=== PATIENT | male | born 1965 | race Caucasian/White ===

== ENCOUNTER 2016-11-19 17:10 | Emergency (ER) | payer OTHER ==
[~2016-11-19] VITALS: Ht 167.6 cm; Wt 77.4 kg
[2016-11-19 17:15] VITALS: TEMP 36.7; Ht 167.6 cm; Wt 77.4 kg
[2016-11-19] MEDS ORDERED: CLC100X PO (17:50)
[2016-11-19] MEDS ORDERED: MOMLX PO (17:50)
--- NOTE | 2016-11-19 18:36 | DIAGNOSTIC IMAGING REPORT ---
ABDOMEN 2VIEW W/PA CHEST RTN CLINICAL HISTORY: Abd wall hernia COMPARISON STUDY: No previous studies for comparison. FINDINGS: The erect chest reveals no evidence of free air. There is no evidence of focal pulmonary consolidation.] Erect and supine views of the abdomen reveal no abnormally dilated loops of large or small bowel. There are no transition zone to indicate bowel obstruction. There is a surgical clip within the right upper quadrant, likely secondary to a prior cholecystectomy. There is a mild scoliosis. IMPRESSION: No evidence of bowel obstruction. No evidence of free air. Electronically signed by: Darrion Carter M.D. 11/19/2016 6:35 PM Dictated Date/Time: 11/19/2016 6:33 PM
[2016-11-19 19:10] VITALS: BP 107/69; PULSE 56; O2SAT 99
--- NOTE | 2016-11-19 20:16 | EMERGENCY ROOM VISIT NOTE ---
History First contact with patient: 17:28 Chief Complaint: GI ASSESSMENT Stated Complaint: HERNIA, BULGING STOMACH Nursing Triage Summary: Pt denies pain in triage. Pt brought in with CO's who state pt has an umbilical hernia, no pain. Pt does not speak Congolese. History of Present Illness The patient is a 51 year old male who presents to the Emergency Room from [facility] with complaints of an abdominal wall hernia and diarrhea for the past 2 days. History was elicited through the computer based interpretation services. The patient reports that he underwent colon resection in April 2016 for small bowel obstruction. He did have a colostomy bag for 5 months with subsequent reversal. This surgery was performed in [place]. The patient currently denies any abdominal pain, nausea, urinary symptoms or recent constipation. He does report trace blood in his stool this afternoon. He does report a history of hemorrhoids as well. Review of Systems Review of systems was limited secondary to language barrier. A brief 6 system review was performed and was negative except for pertinent positives and negatives as indicated in history of present illness. Past Medical/Surgical History Medical Problems: (1) Small bowel obstruction Surgical Problems: (1) History of colostomy (2) History of colostomy reversal Family History Unremarkable Social History Smoking Status: Current Every Day Smoker Alcohol Use: none Marital Status: single Housing Status: other (incarcerated) Occupation Status: other (incarcerated) Current/Historical Medications Scheduled Docusate Sodium (Docusate Sodium), 100 MG PO BID Magnesium Hydroxide (Milk of Magnesia), 1 DOSE PO BID Allergies Coded Allergies: Penicillins (Unverified Allergy, Unknown, "almost ", 11/19/16) Physical Exam Vital Signs Date Time Temp Pulse Resp B/P Pulse Ox O2 Delivery O2 Flow Rate FiO2 11/19/16 19:10 56 16 107/69 99 Room Air 11/19/16 17:15 36.7 59 16 130/57 100 Room Air Pain Rating (0-10): 1.0 Physical Exam CONSTITUTIONAL: Healthy and well nourished. Patient does not appear in any acute distress. HEENT: Normocephalic, atraumatic. Pupils equal, round and reactive. No scleral icterus or conjunctival pallor area NECK: Full active range of motion without discomfort. OROPHARYNX: No posterior pharyngeal erythema, tonsillar hypertrophy or exudates. RESPIRATORY: Clear to auscultation bilaterally with no wheezing, crackles, rhonchi or stridor. CARDIOVASCULAR: Regular rate and rhythm with no murmurs, rubs or gallops. GASTROINTESTINAL: Patient has multiple surgical scars on the abdomen. He has notable protuberance over the central and lower abdominal wall. No overriding erythema noted. The patient has no tenderness to palpation. Examination of the rectum does not show any external hemorrhoids or bleeding. Stool Hemoccult was negative. MUSCULOSKELETAL: Full range of motion of all joints without discomfort. INTEGUMENTARY: No rash or other significant dermatologic conditions noted. NEUROLOGIC: No focal neurologic deficits noted. Medical Decision & Procedures ER Provider Diagnostic Interpretation: My interpretation of an abdomen obstruction series with PA chest does not show any free air or obstructive pattern. Radiologist report is as follows: ABDOMEN 2VIEW W/PA CHEST RTN CLINICAL HISTORY: Abd wall hernia COMPARISON STUDY: No previous studies for comparison. FINDINGS: The erect chest reveals no evidence of free air. There is no evidence of focal pulmonary consolidation.] Erect and supine views of the abdomen reveal no abnormally dilated loops of large or small bowel. There are no transition zone to indicate bowel obstruction. There is a surgical clip within the right upper quadrant, likely secondary to a prior cholecystectomy. There is a mild scoliosis. IMPRESSION: No evidence of bowel obstruction. No evidence of free air. ED Course Patient history and physical exam were performed. Nurse's notes were reviewed. Vital signs were reviewed and were normal. Computer-based interpretation services was utilized throughout the patient's entire emergency department visit. 3 was collected, showing a prior history of small bowel obstruction, status post bowel resection, colostomy and subsequent reversal. The patient is currently asymptomatic without pain, nausea or vomiting. He did have some diarrhea over the past few days with a trace amount of blood on his last bowel movement. At this point, I do not feel that further laboratory studies are warranted. His abdomen obstruction series was normal. The patient was advised that he would be provided contact information for a general surgeon for further reevaluation. At this point, because he is asymptomatic, I am not sure if surgery will suggest hernia repair. He was instructed to seek further medical evaluation for any developing pain, vomiting or fever. The patient voiced understanding through the interpretation services, all questions were answered to the patient's satisfaction, and the patient denied any pain at the time of discharge. Medical Decision See previous section Impression Primary Impression: Abdominal wall hernia Departure Information Dispostion Home / Self-Care Condition GOOD Referrals Cuate Osman D.O. Forms HOME CARE DOCUMENTATION FORM, IMPORTANT VISIT INFORMATION Patient Instructions My [facility] [employer] Additional Instructions Follow-up with Dr. Osman (general surgeon) to discuss further abdominal wall hernia management. Return to the emergency department for any developing pain, vomiting or fever.
[2016-12-26] MEDS ORDERED: [UNRECOGNIZED DRUG - SUPPLY] PO (12:33)
== END 2016-11-19 19:11 | disposition home or self-care (01) ==
LOC: C.EDB 17:13 → C.EDD 19:11
DX: K46.9 Unspecified abdominal hernia without obstruction or gangrene (principal); F17.200 Nicotine dependence, unspecified, uncomplicated

== ENCOUNTER 2016-11-21 22:24 | Emergency (ER) | payer OTHER ==
[~2016-11-21 22:24] MED LIST: CLC100X PO; MOMLX PO
[2016-11-21 22:28] VITALS: TEMP 36.6
[2016-11-21] MEDS ORDERED: SODIUM CHLORIDE 0.9% 1000ML 1,000 ML IV STA (23:13)
[2016-11-21] MEDS ORDERED: ONDANSETRON INJ 2 MG/ML 2 ML VIAL IV STA (23:13)
[2016-11-21] MEDS ORDERED: SODIUM CHLORIDE 0.9% 1000ML 1,000 ML IV ONE (23:13)
--- NOTE | 2016-11-21 23:21 | EMERGENCY ROOM VISIT NOTE ---
History Report prepared by Robert: Caron Norris Under the Supervision of: Dr. Samy Hernandez M.D. First contact with patient: 23:01 Chief Complaint: VOMITING Stated Complaint: VOMITING - NOT FEELING WELL Nursing Triage Summary: using [employer] horseback excavator services , patient states he has increased abdominal pain. was seen here three days ago and was told his abdominal hernia haresh require surgery. patient also had c/o nausea as well. had surgery 6 months ago on colon. History of Present Illness The patient is a 51 year old male who presents to the Emergency Room with complaints of persistent abdominal pain that began today. He currently rates his discomfort as an 8/10 in severity. Per records, the patient was evaluated in the emergency department three days ago for an abdominal hernia that would require surgery. Today, the patient complains of nausea, vomiting, and increased abdominal pain. Per records the patient had surgery on his colon in 2016 for a small bowel obstruction. The patient vomited three times today. Source of History: patient, other (records) Onset: today Position: abdomen Symptom Intensity: 8/10 Timing: other (persistent) Associated Symptoms: + nausea, + vomiting Review of Systems See HPI for pertinent positives & negatives. A total of 10 systems reviewed and were otherwise negative. Past Medical & Surgical Medical Problems: (1) Small bowel obstruction Surgical Problems: (1) History of colostomy (2) History of colostomy reversal Old medical records were reviewed. Nurse's notes were reviewed and I agree with. Family History No pertinent family history stated. Social History Smoking Status: Unknown if Ever Smoked Alcohol Use: none Marital Status: single Housing Status: other Occupation Status: other Current/Historical Medications Scheduled Docusate Sodium (Docusate Sodium), 100 MG PO BID Magnesium Hydroxide (Milk of Magnesia), 1 DOSE PO BID Allergies Coded Allergies: Penicillins (Unverified Allergy, Unknown, "almost ", 11/19/16) Physical Exam Vital Signs Date Time Temp Pulse Resp B/P Pulse Ox O2 Delivery O2 Flow Rate FiO2 11/22/16 01:40 74 18 134/70 98 11/22/16 00:04 56 20 104/65 97 Room Air 11/21/16 22:28 36.6 64 20 110/70 97 Room Air Physical Exam General: Well developed well nourished, non-ill appearing middle aged male in no acute distress, breathing comfortably on room air. Normal speech HEENT: Normal cephalic atraumatic. Pupils are equal round and reactive to light. Sclera anicteric. Extraocular movements are intact. Oropharynx is pink with moist mucous membranes. No swelling of the mouth lips or tongue. Neck: Supple with a midline trachea. No meningeal signs or stiffness, no JVD or bruits. No Stridor. Chest: Clear to auscultation bilaterally. No wheezes or rhonchi. No increased work of breathing. Heart: regular rate and rhythm. Abdomen: Large, ventral hernia, and one to the left. The areas are mildly tender. No redness or warmth. They do reduce. Soft, nondistended without rebound guarding or rigidity. Extremities: No cyanosis clubbing or edema. No calf tenderness or assymetry Spine/Back. Non tender to palpation. No CVA tenderness Skin: Good turgor without rashes. Neurologic exam: Cranial nerves two through 12 are intact. Motor and sensation are intact and symmetrical throughout. Medical Decision & Procedures ER Provider Diagnostic Interpretation: CT results as stated below per my review and radiologist interpretation: CT Abdomen and Pelvis: No priors Suggestion of ventral hernia mesh. There is bulging of the hernia mesh anteriorly at midline with underlying segments of non obstructed small bowel and colon no bowl obstruction. There is fat herniation, example left rectus sheath. Suspected atelectasis. No evidence for appendicitis. No evidence for acute pancreatitis. Cholecystectomy and other nonemergent, incidental findings. Radiologist: Ry Meraz MD Study ready at 0023 and initial results transmitted at 0038 Laboratory Results 11/21/16 22:50 Red Blood Count 5.05, Mean Corpuscular Volume 85.7, Mean Corpuscular Hemoglobin 29.5, Mean Corpuscular Hemoglobin Concent 34.4, Mean Platelet Volume 9.4, Neutrophils (%) (Auto) 57.7, Lymphocytes (%) (Auto) 30.3, Monocytes (%) (Auto) 7.5, Eosinophils (%) (Auto) 3.0, Basophils (%) (Auto) 1.2, Neutrophils # (Auto) 6.01, Lymphocytes # (Auto) 3.15, Monocytes # (Auto) 0.78, Eosinophils # (Auto) 0.31, Basophils # (Auto) 0.12 11/21/16 22:50 Test 11/21/16 22:50 White Blood Count 10.40 K/uL (4.8-10.8) Red Blood Count 5.05 M/uL (4.7-6.1) Hemoglobin 14.9 g/dL (14.0-18.0) Hematocrit 43.3 % (42-52) Mean Corpuscular Volume 85.7 fL (80-100) Mean Corpuscular Hemoglobin 29.5 pg (25-34) Mean Corpuscular Hemoglobin Concent 34.4 g/dl (32-36) Platelet Count 229 K/uL (130-400) Mean Platelet Volume 9.4 fL (7.4-10.4) Neutrophils (%) (Auto) 57.7 % Lymphocytes (%) (Auto) 30.3 % Monocytes (%) (Auto) 7.5 % Eosinophils (%) (Auto) 3.0 % Basophils (%) (Auto) 1.2 % Neutrophils # (Auto) 6.01 K/uL (1.4-6.5) Lymphocytes # (Auto) 3.15 K/uL (1.2-3.4) Monocytes # (Auto) 0.78 K/uL (0.11-0.59) Eosinophils # (Auto) 0.31 K/uL (0-0.5) Basophils # (Auto) 0.12 K/uL (0-0.2) RDW Standard Deviation 39.6 fL (36.4-46.3) RDW Coefficient of Variation 12.6 % (11.5-14.5) Immature Granulocyte % (Auto) 0.3 % Immature Granulocyte # (Auto) 0.03 K/uL (0.00-0.02) Anion Gap 7.0 mmol/L (3-11) Estimated GFR () 109.9 Estimated GFR (Non- 94.8 BUN/Creatinine Ratio 13.0 (10-20) Calcium Level 8.6 mg/dl (8.5-10.1) Total Bilirubin 0.2 mg/dl (0.2-1) Direct Bilirubin < 0.1 mg/dl (0-0.2) Aspartate Amino Transf (AST/SGOT) 15 U/L (15-37) Alanine Aminotransferase (ALT/SGPT) 24 U/L (12-78) Alkaline Phosphatase 83 U/L (45-117) Total Protein 7.1 gm/dl (6.4-8.2) Albumin 3.9 gm/dl (3.4-5.0) Lipase 207 U/L (73-393) Laboratory studies as stated above per my review. Medications Administered Medications (Trade) Dose Ordered Sig/Dee Dee Route Start Time Stop Time Status Last Admin Dose Admin Sodium Chloride 1,000 ml @ 999 mls/hr Q1H1M STAT IV 11/21/16 23:13 11/22/16 00:13 DC 11/22/16 00:03 999 MLS/HR Sodium Chloride (Nss 1000ml) 1,000 ml @ 150 mls/hr Q6H40M ONCE IV 11/21/16 23:13 11/22/16 02:10 DC 11/22/16 00:03 150 MLS/HR Ondansetron HCl (Zofran Inj) 4 mg NOW STAT IV 11/21/16 23:13 11/21/16 23:16 DC 11/22/16 00:03 4 MG ED Course 2306: Past medical records reviewed. The patient was evaluated in room B9, and a complete history and physical examination were performed. 2312: Ordered Zofran Inj 4 mg IV, Sodium Chloride 1000 ml @ 150 mls/hr IV, Sodium Chloride 1000 ml @ 999 mls/hr IV. 0017: I went to reevaluate the patient and he is at CT scan. 0055: I reevaluated the patient and he is resting comfortably. I discussed the exam findings with him and the guards using the horseback excavator and I discussed the treatment plan. He verbalized complete understanding and agreement. He is ready for discharge. 0118: I discussed the patients case with Dr. Osman, General Surgery. And he agrees that the patient can follow up as an outpatient this week. Medical Decision Differentials include, but are not limited to; bowel obstruction, hernia, infection, electrolyte or metabolic abnormality, dehydration. This patient comes in as described above. He has a large ventral hernia secondary to previous surgery. he's had increasing pain and vomiting today. He was evaluated here recently as scheduled and have surgical follow-up. I examined the hernia and it is reducible is not red or warm. It's mildly tender. IV access established was hydrated with IV normal saline and was given Zofran 4 mg IV for nausea. I did obtain blood work as well as a CAT scan and urinalysis and culture. He was reassessed frequently. He has no white count or fever to suggest infection. He has no acute electrode or metabolic abnormalities. He has no abnormalities of his liver function tests or lipase. His CAT scan was obtained and shows hernias but no evidence of bowel obstruction. These are easily reducible he feels better. I talked to him through the computer horseback excavator. I have discussed case with Dr. Osman, the on-call surgeon. They will follow-up with him in the office for elective repair. Patient is encouraged to return if he has fever, increasing pain or swelling, redness or warmth, further vomiting, any problems concerns. They're happy the plan and discharged to home. Consults Time Called: 109 Consulting Physician: Dr. Osman, General Surgery Returned Call: [phone] I discussed the patients case with Dr. Osman, General Surgery. And he agrees that the patient can follow up as an outpatient this week. Impression Primary Impression: Ventral hernia Additional Impression: Vomiting Scribe Attestation The scribe's documentation has been prepared under my direction and personally reviewed by me in its entirety. I confirm that the note above accurately reflects all work, treatment, procedures, and medical decision making performed by me. Departure Information Dispostion Home / Self-Care Referrals [facility] (PCP) Cuate Osman D.O. Forms HOME CARE DOCUMENTATION FORM, IMPORTANT VISIT INFORMATION Patient Instructions My [facility] [employer] Additional Instructions Rest Return if : worsening of symptoms, increasing pain or size of hernia, redness or warmth, fever or chills, vomiting, any new problems or concerns Follow-up with Dr. Osman(Surgeon) within the next couple days for recheck and he will likely need elective surgery Return to the emergency department if symptoms worsen at any point Problem Qualifiers
[2016-11-21] MEDS ORDERED: OPTIRAY 320 IV PRN (23:30)
[2016-11-21 23:38] LABS: BASO % 1.2 %; BASO ABS # 0.12 K/uL (0-0.2); COMPLETE YES; HEMATOCRIT 43.3 % (42-52); IG% 0.3 %; LYMPH % 30.3 %; LYMPH ABS # 3.15 K/uL (1.2-3.4); MEAN CELL VOLUME 85.7 fL (80-100); MEAN CORPUSCULAR HEMOGLOBIN 29.5 pg (25-34); MEAN CORPUSCULAR HGB CONC 34.4 g/dl (32-36); MEAN PLATELET VOLUME 9.4 fL (7.4-10.4); MONO % 7.5 %; NEUT % 57.7 %; PLATELET COUNT 229 K/uL (130-400); RED BLOOD COUNT 5.05 M/uL (4.7-6.1)
[2016-11-21 23:53] LABS: ALT/SGPT 24 U/L (12-78); BLOOD UREA NITROGEN 12 mg/dl (7-18); CALCIUM 8.6 mg/dl (8.5-10.1); CARBON DIOXIDE 31 mmol/L (21-32); CHLORIDE 106 mmol/L (98-107); CREATININE 0.94 mg/dl (0.60-1.40); GLUCOSE 102 mg/dl (70-99); POTASSIUM 3.9 mmol/L (3.5-5.1); SODIUM 144 mmol/L (136-145)
[2016-11-21 23:56] LABS: ALKALINE PHOSPHATASE 83 U/L (45-117); AST/SGOT 15 U/L (15-37)
[2016-11-22 01:40] VITALS: BP 134/70; PULSE 74; O2SAT 98
--- NOTE | 2016-11-22 07:09 | DIAGNOSTIC IMAGING REPORT ---
ABDOMEN AND PELVIS CT WITH IV CONTRAST CT DOSE: 350.77 mGy.cm HISTORY: Pain eval for bowel obstruction, hernia TECHNIQUE: Multiaxial CT images of the abdomen and pelvis were performed following the use of intravenous contrast. COMPARISON STUDY: None FINDINGS: Minimal dependent basilar atelectatic change. Prior cholecystectomy. Liver spleen and pancreas are unremarkable. Kidneys negative for obstruction or hydronephrosis. There is 1.5 cm lower pole left renal cyst. Findings of an anterior ventral hernia repair. Nonobstructive bowel pattern. Normal appendix. Bladder is midline. IMPRESSION: No significant abnormality identified within the abdomen or pelvis. Electronically signed by: Sunil Chadwick M.D. 11/22/2016 7:08 AM Dictated Date/Time: 11/22/2016 7:07 AM
[2016-12-26] MEDS ORDERED: [UNRECOGNIZED DRUG - SUPPLY] PO (12:33)
== END 2016-11-22 01:42 | disposition home or self-care (01) ==
LOC: C.EDB 22:25
DX: K43.9 Ventral hernia without obstruction or gangrene (principal); R11.10 Vomiting, unspecified; Z93.3 Colostomy status

== ENCOUNTER 2016-12-12 14:46 | Emergency (ER) | payer OTHER ==
[~2016-12-12] VITALS: Ht 160 cm; Wt 82.7 kg
[2016-12-12 14:53] VITALS: TEMP 37; Ht 160 cm; Wt 82.7 kg
[2016-12-12] MEDS ORDERED: SODIUM CHLORIDE 0.9% 1000ML 1,000 ML IV STA (15:20)
[2016-12-12] MEDS ORDERED: MoRPHine SULFATE 4 MG/ML 1 ML CARP\\VIAL IV STA (15:20)
[2016-12-12] MEDS ORDERED: ONDANSETRON INJ 2 MG/ML 2 ML VIAL IV STA (15:20)
[2016-12-12] MEDS ORDERED: MRLP17X PO (15:34)
[2016-12-12] MEDS ORDERED: ACET-1311 PO (15:34)
[2016-12-12 16:00] LABS: BASO % 0.6 %; BASO ABS # 0.06 K/uL (0-0.2); COMPLETE YES; EOS % 2.3 %; IG% 0.5 %; LYMPH % 21.6 %; LYMPH ABS # 2.26 K/uL (1.2-3.4); MEAN CELL VOLUME 86.1 fL (80-100); MEAN CORPUSCULAR HEMOGLOBIN 30.1 pg (25-34); MEAN PLATELET VOLUME 9.3 fL (7.4-10.4); MONO % 7.8 %; NEUT % 67.2 %; PLATELET COUNT 195 K/uL (130-400); RED BLOOD COUNT 5.11 M/uL (4.7-6.1); WHITE BLOOD COUNT 10.45 K/uL (4.8-10.8)
--- NOTE | 2016-12-12 16:06 | DIAGNOSTIC IMAGING REPORT ---
ABDOMEN AND PELVIS CT WITHOUT CONTRAST CT DOSE: 370.74 mGy.cm HISTORY: Pain h/o hernia with vomit ting and mid abd pain eval for obstruction TECHNIQUE: Multiaxial CT images of the abdomen and pelvis were performed without contrast. COMPARISON STUDY: 11/22/2016 FINDINGS: Minimal dependent basilar atelectasis. Prior cholecystectomy. Several ventral hernias all which are nonobstructing. Pancreas is unremarkable. Kidneys negative for calcification or hydronephrosis. Nonobstructive bowel pattern throughout. Bladder is midline. No free fluid within the pelvic cul-de-sac. IMPRESSION: Several ventral hernias considered nonobstructing and primarily non bowel containing. No acute process of the abdomen or pelvis status post cholecystectomy. Electronically signed by: Sunil Chadwick M.D. 12/12/2016 4:04 PM Dictated Date/Time: 12/12/2016 4:01 PM
[2016-12-12 16:19] LABS: BUN/CREATININE RATIO 12.6 (10-20); CALCIUM 9.4 mg/dl (8.5-10.1); CREATININE 0.88 mg/dl (0.60-1.40)
[2016-12-12 16:40] VITALS: BP 109/68; PULSE 61; O2SAT 97
--- NOTE | 2016-12-12 18:14 | EMERGENCY ROOM VISIT NOTE ---
History Report prepared by Leticiaibalejo: Rosalinda Maddox Under the Supervision of: Dr. Zenon Cornell M.D. First contact with patient: 15:03 Chief Complaint: OTHER COMPLAINT Stated Complaint: HERNIA History of Present Illness The patient is a 51 year old male who presents to the Emergency Room with complaints of constant, worsening, central abdominal pain that began last night. He cannot describe the quality of the pain. This morning, the patient developed diarrhea. There was no blood in his stool. He also complains of vomiting and difficulty urinating. The patient was in the ED on November 19 and November 21 for abdominal pain. An abdomen/pelvis CT on November 21 showed evidence for a ventral hernia repair. Follow up with general surgery was arranged. Currently, his pain is similar to the pain he had last month but is worse. He followed with surgery a few days ago and had a ventral hernia repair scheduled. The patient has a history of a prior bowel resection for an obstruction in 2016 in [place]. Denies fever or other complaints. History was obtained using a sign language interpreter. Source of History: patient (via head grease maker) History Limited By: language Onset: last night Position: abdomen (central) Timing: constant, worsening Associated Symptoms: + diarrhea, + urinary symptoms, + vomiting, No fevers Review of Systems See HPI for pertinent positives & negatives. A total of 10 systems reviewed and were otherwise negative. Past Medical & Surgical Medical Problems: (1) Small bowel obstruction Surgical Problems: (1) History of colostomy (2) History of colostomy reversal Family History No pertinent family history stated. Social History Smoking Status: Unknown if Ever Smoked Alcohol Use: none Marital Status: single Housing Status: other (detention) Current/Historical Medications Scheduled PRN Acetaminophen (Tylenol), 650 MG PO BID PRN for Pain or Fever Docusate Sodium (Docusate Sodium), 100 MG PO BID PRN for Constipation Polyethylene (Miralax), 17 GM PO BID PRN for Constipation Allergies Coded Allergies: Penicillins (Unverified Allergy, Unknown, "almost ", 12/12/16) Physical Exam Vital Signs Date Time Temp Pulse Resp B/P Pulse Ox O2 Delivery O2 Flow Rate FiO2 12/12/16 16:40 61 109/68 97 12/12/16 14:53 37.0 73 16 120/75 97 Room Air Physical Exam Constitutional: Vital signs reviewed. Eyes: Pupils are equal round reactive to light. Conjunctiva are noninjected. ENT: Pharynx is clear without erythema or exudate. Mucous membranes are moist. Neck supple without meningeal signs. Respiratory: Clear to auscultation bilaterally. Breath sounds are equal bilaterally. Cardiovascular: Regular rate and rhythm. No rubs or gallops. GI: Soft, nondistended. Mid-abdominal tenderness, no guarding. Bowel sounds are present. Musculoskeletal: No peripheral edema. No lower extremity tenderness. Integumentary: No cyanosis. Neurological: The patient is awake and alert. No focal deficits. Psychiatric: Normal affect. Medical Decision & Procedures ER Provider Diagnostic Interpretation: Radiology results as stated below per my review and the radiologist's interpretation: ABDOMEN AND PELVIS CT WITHOUT CONTRAST CT DOSE: 370.74 mGy.cm HISTORY: Pain h/o hernia with vomit ting and mid abd pain eval for obstruction TECHNIQUE: Multiaxial CT images of the abdomen and pelvis were performed without contrast. COMPARISON STUDY: 11/22/2016 FINDINGS: Minimal dependent basilar atelectasis. Prior cholecystectomy. Several ventral hernias all which are nonobstructing. Pancreas is unremarkable. Kidneys negative for calcification or hydronephrosis. Nonobstructive bowel pattern throughout. Bladder is midline. No free fluid within the pelvic cul-de-sac. IMPRESSION: Several ventral hernias considered nonobstructing and primarily non bowel containing. No acute process of the abdomen or pelvis status post cholecystectomy. Electronically signed by: Sunil Chadwick M.D. 12/12/2016 4:04 PM Dictated Date/Time: 12/12/2016 4:01 PM Laboratory Results 12/12/16 15:45 Red Blood Count 5.11, Mean Corpuscular Volume 86.1, Mean Corpuscular Hemoglobin 30.1, Mean Corpuscular Hemoglobin Concent 35.0, Mean Platelet Volume 9.3, Neutrophils (%) (Auto) 67.2, Lymphocytes (%) (Auto) 21.6, Monocytes (%) (Auto) 7.8, Eosinophils (%) (Auto) 2.3, Basophils (%) (Auto) 0.6, Neutrophils # (Auto) 7.02, Lymphocytes # (Auto) 2.26, Monocytes # (Auto) 0.82, Eosinophils # (Auto) 0.24, Basophils # (Auto) 0.06 12/12/16 15:45 Test 12/12/16 15:45 White Blood Count 10.45 K/uL (4.8-10.8) Red Blood Count 5.11 M/uL (4.7-6.1) Hemoglobin 15.4 g/dL (14.0-18.0) Hematocrit 44.0 % (42-52) Mean Corpuscular Volume 86.1 fL (80-100) Mean Corpuscular Hemoglobin 30.1 pg (25-34) Mean Corpuscular Hemoglobin Concent 35.0 g/dl (32-36) Platelet Count 195 K/uL (130-400) Mean Platelet Volume 9.3 fL (7.4-10.4) Neutrophils (%) (Auto) 67.2 % Lymphocytes (%) (Auto) 21.6 % Monocytes (%) (Auto) 7.8 % Eosinophils (%) (Auto) 2.3 % Basophils (%) (Auto) 0.6 % Neutrophils # (Auto) 7.02 K/uL (1.4-6.5) Lymphocytes # (Auto) 2.26 K/uL (1.2-3.4) Monocytes # (Auto) 0.82 K/uL (0.11-0.59) Eosinophils # (Auto) 0.24 K/uL (0-0.5) Basophils # (Auto) 0.06 K/uL (0-0.2) RDW Standard Deviation 40.8 fL (36.4-46.3) RDW Coefficient of Variation 12.8 % (11.5-14.5) Immature Granulocyte % (Auto) 0.5 % Immature Granulocyte # (Auto) 0.05 K/uL (0.00-0.02) Anion Gap 5.0 mmol/L (3-11) Est Creatinine Clear Calc Drug Dose 96.5 ml/min Estimated GFR () 116.9 Estimated GFR (Non- 100.9 BUN/Creatinine Ratio 12.6 (10-20) Calcium Level 9.4 mg/dl (8.5-10.1) Total Bilirubin 0.5 mg/dl (0.2-1) Direct Bilirubin 0.1 mg/dl (0-0.2) Aspartate Amino Transf (AST/SGOT) 18 U/L (15-37) Alanine Aminotransferase (ALT/SGPT) 35 U/L (12-78) Alkaline Phosphatase 73 U/L (45-117) Total Protein 7.3 gm/dl (6.4-8.2) Albumin 4.0 gm/dl (3.4-5.0) Lipase 153 U/L (73-393) Laboratory results as reviewed by me. Medications Administered Medications (Trade) Dose Ordered Sig/Dee Dee Route Start Time Stop Time Status Last Admin Dose Admin Morphine Sulfate (MoRPHine SULFATE INJ) 4 mg ONE STAT IV 12/12/16 15:20 12/12/16 15:22 DC 12/12/16 15:45 4 MG Ondansetron HCl 4 mg 4 mg NOW STAT IV 12/12/16 15:20 12/12/16 15:22 DC 12/12/16 15:45 4 MG Sodium Chloride (Nss 1000ml) 1,000 ml @ 999 mls/hr Q1H1M STAT IV 12/12/16 15:20 12/12/16 16:20 DC 12/12/16 15:46 999 MLS/HR ED Course 1507: The patient was evaluated in room B9. A complete history and physical exam was performed. 1520: Ordered NSS 1000 ml @ 999 mls/hr IV, Zofran Inj 4 mg IV, Morphine Sulfate 4 mg IV. 1633: I reassessed the patient and talked to him via the head grease maker about results. He is feeling much better and has no abdominal tenderness on exam. He will follow up with the [facility] and the surgeon he saw earlier this week. The patient was discharged. Medical Decision This is a 51-year-old male who presents with abdominal pain. Differential diagnosis includes incarcerated hernia, bowel obstruction, pancreatitis, irritable bowel syndrome, gastritis. I did perform a limited focused review of portions of the patient's old chart on the electronic medical record. The patient was here on November 19 and for abdominal pain. He had a CT on November 21 which showed no acute findings. There was evidence of a ventral hernia repair. Follow up was arranged with general surgery. I did evaluate the patient as noted above. I did obtain history from the patient via sign language interpreter. IV access was established. I did treat him with IV morphine and Zofran. He was also given normal saline IV. I did order and review the patient's blood work as noted in the electronic medical record. I did order a CT of the abdomen and pelvis. I did review the images myself as well as the radiology report as described above. There is no evidence of bowel obstruction or acute intra-abdominal pathology. I did reassess the patient. I did discuss the test results with him via the sign language interpreter. He is feeling much better and has no tenderness on exam. I did recommend he follow closely with the surgeon that he had seen earlier this week and the detention in summary. He was transferred back to the detention. Impression Primary Impression: Central abdominal pain Additional Impression: Ventral hernia Scribe Attestation The scribe's documentation has been prepared under my direct and personally reviewed by me in its entirety. I confirm that the note above accurately reflects all work, treatment, procedures, and medical decision making performed by me. Departure Information Dispostion Home / Self-Care Referrals [facility] (PCP) Patient Instructions Hernia, My [facility] Additional Instructions You have been examined and treated today on an emergency basis only. This is not a substitute for, or an effort to provide, complete comprehensive medical care. It is impossible to recognize and treat all injuries or illnesses in a single emergency department visit. It is therefore important that you follow up closely with your surgeon and [facility]. Call as soon as possible for an appointment. Return for worsening symptoms or if you develop fever or any other concerning symptoms. Problem Qualifiers Additional Impression: Ventral hernia Obstruction and gangrene presence: without obstruction or gangrene Qualified Codes: K43.9 - Ventral hernia without obstruction or gangrene
[2016-12-26] MEDS ORDERED: [UNRECOGNIZED DRUG - SUPPLY] PO (12:33)
== END 2016-12-12 17:10 ==
LOC: C.EDB 14:47
DX: R10.84 Generalized abdominal pain (principal); K43.9 Ventral hernia without obstruction or gangrene

== ENCOUNTER 2017-01-10 09:40 | Inpatient (IN) | payer OTHER ==
[2016-12-26 12:34] VITALS: BMI 27.0
[~2017-01-10] VITALS: Ht 172.7 cm; Wt 80.5 kg
[2017-01-10] VITALS (9 sets, daily range): BP systolic 105–129; BP diastolic 62–82; PULSE 61–100; TEMP 36.3–37.1; O2SAT 95–99; Ht 172.7 cm; Wt 80.5 kg
[~2017-01-10 09:40] MED LIST changes: +ACET-1311 PO; -CLC100X PO; +CLINDAMYCIN 600 MG/54 ML D5W IV SCH; +DEXAMETHASONE SOD INJ 4 MG/ML VIAL ONE; +FENTANYL CITRATE INJ 50 MCG/1 ML 2 ML VIAL ONE; +GENTAMICIN INJ 80 MG in DEXTROSE 5% 100ML 100 ML IV SCH; +GLYCOPYRROLATE INJ 0.2 MG/ML VIAL ONE; +HEPARIN SOD 5000 UNIT/0.5 ML CARP SQ SCH; +LACTATED RINGER'S 1000ML 1,000 ML IV SCH; +LIDOCAINE HCL 2% 2 ML VIAL (20MG/ML) ONE; +MIDAZOLAM HCL 1 MG/ML 2ML VIAL ONE; -MOMLX PO; +MRLP17X PO; +NEOSTIGMINE METHYLSULFATE 5 MG/5 ML SYR ONE; +ONDANSETRON INJ 2 MG/ML 2 ML VIAL ONE; +PROPOFOL IV EMULSION 10 MG/ML 20 ML VIAL IV ONE; +ROCURONIUM BROMIDE 10 MG/ML 5 ML VIAL ONE; +[UNRECOGNIZED DRUG - SUPPLY] PO
[2017-01-10] MEDS ORDERED: BUPIVACAINE/EPINEPHRINE 0.5% MPF 1:200,000 30 ML VIAL ONE (10:21)
--- NOTE | 2017-01-10 10:25 | History and Physical ---
History & Physical Date January 10, 2017. Chief Complaint symptomatic hernia History of Present Illness The patient is a 51 year old male with complaints of Past Medical/Surgical History Medical Problems: (1) Small bowel obstruction Surgical Problems: (1) History of colostomy (2) History of colostomy reversal Additional History Hepatic Disease: No Endocrine Disorder: No Kidney Disease: No Hypertension: No Heart Disease: No Bleeding Tendencies: No Infectious Diseases: No Allergies Coded Allergies: Penicillins (Unverified Allergy, Unknown, "almost ", 12/26/16) Home Medications Scheduled PRN Acetaminophen (Tylenol), 650 MG PO BID PRN for Pain or Fever Polyethylene (Miralax), 17 GM PO BID PRN for Constipation [Icepack], 1 PKT PO QID PRN for Pain Physical Examination Skin: warm/dry Eyes: normal inspection, EOMI Head: normocephalic Neck: supple, trachea midline Respiratory/Chest: lungs clear, no respiratory distress Cardiovascular: regular rate, rhythm Abdomen / GI: + pertinent finding (large abdominal wall hernia... lost of most of domain. multiple large scars. ) Extremities: normal inspection Neurologic/Psych: alert, oriented x 3 Diagnosis multiple large ventral hernias with loss of domain Plan of Treatment will need surgical repair. best technique would be component separation as well as possible mesh onlay will require large incision, drainage tubes etc... discussed again today via textile science technician...pt understands. no questions. will proceed.
[2017-01-10] MEDS ORDERED: ESMOLOL HCL 10 MG/ML 10 ML VIAL ONE (11:15)
[2017-01-10] MEDS ORDERED: HYDROmorphone INJ 2 MG/ML SYR/VIAL ONE ×2 (11:43→13:13)
[2017-01-10] MEDS ORDERED: GLYCOPYRROLATE INJ 0.2 MG/ML VIAL ONE (11:56)
[2017-01-10] MEDS ORDERED: ROCURONIUM BROMIDE 10 MG/ML 5 ML VIAL ONE (11:56)
[2017-01-10] MEDS ORDERED: MEPERIDINE HCL 25 MG/ML CARP IV PRN (12:30)
[2017-01-10] MEDS ORDERED: HYDROmorphone INJ 1 MG/ML SYR IV PRN (12:30)
[2017-01-10] MEDS ORDERED: ATROPINE SULFATE 0.1 MG/ML 5ML SYR IV PRN (12:30)
[2017-01-10] MEDS ORDERED: LABETALOL HCL IV 5 MG/ML 20ML IV PRN (12:30)
[2017-01-10] MEDS ORDERED: ONDANSETRON INJ 2 MG/ML 2 ML VIAL IV PRN ×2 (12:30→13:45)
[2017-01-10] MEDS ORDERED: EpHEDrine SULFATE INJ 50 MG/ML AMP IV PRN (12:30)
[2017-01-10] MEDS ORDERED: TISSEEL FIBRIN SEALANT 4ML TOP ONE (12:40)
[2017-01-10] MEDS ORDERED: ARISTA ABSORBABLE HEMOSTAT 3GM TOP ONE (12:43)
[2017-01-10] MEDS ORDERED: FENTANYL CITRATE INJ 50 MCG/1 ML 2 ML VIAL ONE (13:14)
[2017-01-10] MEDS ORDERED: NALOXONE HCL 0.4 MG/1 ML VIAL/CARP IV PRN (13:15)
--- NOTE | 2017-01-10 13:19 | [facility] Operative Report ---
Operative Report Operative Date January 10, 2017. Pre-Operative Diagnosis symptomatic hernia Post-Operative Diagnosis ventral hernia's times 2; extensive abdominal adhesions Procedure(s) Performed open ventral hernia repair times 2 with component separation; vicryl mesh onlay Surgeon Dr Osman Masonry Supervisor Surgeon(s) Shahrzad Giordano PA-C Estimated Blood Loss 50ML Findings large midline ventral hernia; smaller ostomy site hernia; extensive intraabdominal adhesions. Specimens NONE Drains meaghan times 1 into sub-Q space Anesthesia get Complication(s) None Disposition Recovery Room / PACU I attest to the content of the Intraoperative Record and any orders documented therein. Any exceptions are noted below.
[2017-01-10] MEDS: FENTANYL CITRATE INJ 50 MCG/1 ML 2 ML VIAL IV PRN ×5 (13:20→13:40)
[2017-01-10] MEDS: HYDROmorphone HCL 0.5MG/ML 50 ML CASSETTE IV PRN ×2 (13:51→23:08)
--- NOTE | 2017-01-10 13:52 | Anesthesiology Progress Note ---
Anesthesia Post Op Note Date & Time January 10, 2017 at 13:53 Vital Signs Pain Intensity: 4 Vital Signs Past 12 Hours Date Time Temp Pulse Resp B/P Pulse Ox O2 Delivery O2 Flow Rate FiO2 01/10/17 13:45 71 16 132/83 100 Nasal Cannula 3 01/10/17 13:35 78 16 124/75 100 Nasal Cannula 3 01/10/17 13:25 73 16 131/87 100 Nasal Cannula 3 01/10/17 13:15 77 16 134/87 100 Mask 10 01/10/17 13:05 36.4 79 16 122/85 100 Mask 10 01/10/17 10:15 37.1 61 20 129/76 99 Room Air Notes Mental Status: alert / awake / arousable, participated in evaluation Pt Amnestic to Procedure: Yes Nausea / Vomiting: adequately controlled Pain: adequately controlled Airway Patency, RR, SpO2: stable & adequate BP & HR: stable & adequate Hydration State: stable & adequate Anesthetic Complications: no major complications apparent
[2017-01-10] MEDS: SODIUM CHLORIDE 0.9% 1000ML 1,000 ML IV SCH (15:15)
[2017-01-10] MEDS: LACTATED RINGER'S 1000ML 1,000 ML IV SCH ×2 (15:50→19:46)
--- NOTE | 2017-01-10 15:53 | OPERATIVE REPORT ---
DATE OF OPERATION: 01/10/2017 PREOPERATIVE DIAGNOSIS: Large ventral hernia with loss of domain. POSTOPERATIVE DIAGNOSIS: Ventral hernias x2 with extensive intra-abdominal adhesions. PROCEDURES: Open ventral hernia repair with mesh, component separation and extensive enterolysis. SURGEON: Dr. Cuate Osman. LEARNING SUPPORT TEACHER: Shahrzad Giordano PA-C ESTIMATED BLOOD LOSS: Approximately 50 mL. COMPLICATIONS: No immediate. ANESTHESIA: General. The patient tolerated the procedure well. DESCRIPTION OF PROCEDURE: After informed consent was obtained, the patient was taken to the operating suite and placed in supine position. After successful intubation, the abdomen was sterilely prepped and draped in usual fashion. We made an elliptical incision around his prior widened midline scar. We did this with a 15 blade scalpel and used electrocautery to completely remove the scar itself. Once we did this, there was nothing, but simple peritoneum between the skin and the bowel. We were able to enter the abdominal cavity bluntly where we found extensive primarily small bowel and omental adhesions. We were able to use primarily finger fractionation and breakthrough these adhesions. We did have to use some scissor lysis. Eventually along the right lateral wall, I was able to find a retracted fascial edge, which we grabbed with Allis clamps. I was then able to use that to follow the fascial defect around in 360 degrees, taking down adhesions to the undersurface as we went. When we got around the left lateral side, there was also probably 2-inch defect, where his prior colostomy had been. This was a discrete separate defect. Again, I continued to take down adhesions from the undersurface of this defect as well. Eventually with quite some time, we were able to free up all the adhesions and expose all of the abdominal fascia. We had to do a component separation with some relaxing incisions laterally between the rectus and external obliques to free up the fascia in order to be able to bring it together in the midline. We did this on both sides using electrocautery. Once we had freed these up, we were started by primarily closing the ostomy defect from the underside. I used a #1 Ethibond interrupted [id number] fashion from the underside of the defect to primarily close it. Once I did this, I was then able to primarily close the large midline defect using #1 Ethibond in an interrupted [id number] fashion for the entire thing. Once this was done, I continued to use electrocautery to free up in several centimeters in all directions some of the fascia around the area we just closed. We then thoroughly irrigated the wound. We then used a Vicryl mesh as an onlay, covering for several inches in all directions. We used 0 Vicryl to secure this mesh into place. A final irrigation was performed. There was adequate hemostasis at the end of the procedure. I sprayed all the raw surfaces with Tisseel sealant as well as powdered all the raw surfaces with Lizeth to help prevent seroma and hematoma formation. A #10 flat Naveen-Rehman drain was brought in through a separate stab incision and secured to the skin using 2-0 nylon. The defect itself was closed in multiple layers using 0 Vicryl for deep layers, 2-0 Vicryl for the mid layers and skin pavan for the skin. Xeroform and dressing were applied. An abdominal binder was also placed. The patient was awakened, extubated, and transferred to recovery in stable condition. I attest to the content of the Intraoperative Record and any orders documented therein. Any exceptions are noted below. JHOAN
[2017-01-10] MEDS: CLINDAMYCIN IV 900 MG in DEXTROSE 5% ADD-VANTAGE 100ML 100 ML IV SCH (18:01)
[2017-01-11] MEDS: CLINDAMYCIN IV 900 MG in DEXTROSE 5% ADD-VANTAGE 100ML 100 ML IV SCH ×2 (01:36→09:21)
[2017-01-11] MEDS: LACTATED RINGER'S 1000ML 1,000 ML IV SCH ×2 (01:36→09:25)
[2017-01-11 03:20] VITALS: BP 104/62; PULSE 87; TEMP 36.9; O2SAT 95
[2017-01-11 06:53] VITALS: BP 115/73; PULSE 67; TEMP 36.8; O2SAT 96
[2017-01-11] MEDS: HYDROmorphone HCL 0.5MG/ML 50 ML CASSETTE IV PRN (07:09)
--- NOTE | 2017-01-11 07:34 | Surgery Progress Note ---
Surgery Progress Note Date of Service January 11, 2017. Subjective Post OP Day: 1 + feeling well, + pain controlled In to see patient, Patient is Maori speaking only- used IPad for evaluation. Patient reports that he is doing well this AM. No fever or chills overnight. Denies nausea or vomiting. No BM. Pain is controlled. Patient reports that he is hungry this morning. Objective Vital Signs: Date Time Temp Pulse Resp B/P Pulse Ox O2 Delivery O2 Flow Rate FiO2 01/11/17 06:53 36.8 67 17 115/73 96 Room Air 01/11/17 03:20 36.9 87 16 104/62 95 Room Air 01/10/17 23:35 Room Air 01/10/17 23:08 36.8 72 16 123/82 96 Room Air 01/10/17 19:03 36.3 90 16 105/62 96 Room Air 01/10/17 16:51 36.4 100 16 113/71 95 Room Air 01/10/17 16:15 95 Room Air 01/10/17 16:01 79 16 116/67 95 Nasal Cannula 2.0 01/10/17 15:14 36.4 79 16 116/76 95 Nasal Cannula 2.0 01/10/17 14:30 79 16 125/82 95 Nasal Cannula 3.0 01/10/17 14:00 36.5 86 16 110/74 97 Nasal Cannula 3.0 01/10/17 14:00 Nasal Cannula 3.0 01/10/17 14:00 Nasal Cannula 3.0 01/10/17 13:45 71 16 132/83 100 Nasal Cannula 3 01/10/17 13:35 78 16 124/75 100 Nasal Cannula 3 01/10/17 13:25 73 16 131/87 100 Nasal Cannula 3 01/10/17 13:15 77 16 134/87 100 Mask 10 01/10/17 13:05 36.4 79 16 122/85 100 Mask 10 01/10/17 10:15 37.1 61 20 129/76 99 Room Air Physical Exam: MAGDALENA drainage (Drain in place- serosan. 70 cc (01/10) 45cc so far this AM. ) General Appearance: WD/WN, no apparent distress Head: normocephalic, atraumatic Abdomen: non tender, soft Incision(s): findings (Patient has abdominal binder on. ) Laboratory Results: Results Past 24 Hours Test 01/11/17 04:44 Range/Units Assessment & Plan POD #1. Open ventral hernia repair with mesh, component separation and extensive enterolysis. Patient's pain is controlled. Vital signs stable. Patient tolerating clear liquid diet. May slowly advance patient's diet today. Labs pending at this time. clear liquids
--- NOTE | 2017-01-11 08:10 | Anesthesiology Progress Note ---
Anesthesia Post Op Note Date & Time January 11, 2017 at 08:09 Vital Signs Pain Intensity: 5.0 Vital Signs Past 12 Hours Date Time Temp Pulse Resp B/P Pulse Ox O2 Delivery O2 Flow Rate FiO2 01/11/17 06:53 36.8 67 17 115/73 96 Room Air 01/11/17 03:20 36.9 87 16 104/62 95 Room Air 01/10/17 23:35 Room Air 01/10/17 23:08 36.8 72 16 123/82 96 Room Air Notes Mental Status: alert / awake / arousable, participated in evaluation Anesthetic Complications: no major complications apparent
[2017-01-11] MEDS ORDERED: ENOXAPARIN 40 MG/0.4 ML SYR SQ SCH (09:00)
[2017-01-11 09:06] LABS: INR 1.1 (0.9-1.1); PROTHROMBIN TIME (PATIENT) 11.4 SECONDS (9.0-12.0)
[2017-01-11] MEDS ORDERED: CALCIUM CARBONATE 500 MG CHEWABLE PO PRN ×2 (09:45→10:00)
--- NOTE | 2017-01-11 09:45 | Discharge Instructions ---
Discharge Instructions Date of Service January 11, 2017. Admission Reason for Admission: Incisional Hernia Discharge Discharge Diagnosis / Problem: Incisional Hernia Discharge Goals Goal(s): Decrease discomfort, Improve function Activity Recommendations Activity Limitations: as noted below Lifting Limitations: no more than 10 pounds Exercise/Sports Limitations: until after follow-up appointment Shower/Bathe: tomorrow . Instructions / Follow-Up Instructions / Follow-Up Recommendations: 1. Ultram 50mg BID PRN for pain. 2. Tylenol #3 1-2 q4-6Hrs PRN pain. 3. Bactrim DS 1 PO BID X 7days 4. Change dressing with gauze and tape 2x per day. 5. Patient has abdominal binder on, please keep this binder on until follow-up appointment with Dr. Osman. 6. Empty MAGDALENA bulb daily PRN. Have nurse remove MAGDALENA drain 01/16/2017. 7. Follow-up with Dr. Osman in 2 weeks for staple removal. Please call the office at [phone] to schedule this appointment. 8. No exercise or straining for 4 weeks. 9. Patient has no dietary restrictions. Current Hospital Diet Patient's current hospital diet: Regular Diet Discharge Diet Recommended Diet: Regular Diet Procedures Procedures Performed: Open Incisional Hernia Repair with Mesh, Component Separation Pending Studies Studies pending at discharge: no Medical Emergencies . Who to Call and When: Medical Emergencies: If at any time you feel your situation is an emergency, please call 911 immediately. . Non-Emergent Contact Non-Emergency issues call your: Primary Care Provider, Surgeon Call Non-Emergent contact if: temperature is above 101.5, your pain is not controlled, wound has increased drainage, wound has increased redness . "Provider Documentation" section prepared by Shahrzad Giordano. . VTE Core Measure Inpt VTE Proph given/why not?: Unfractionated heparin SQ, SCD's
[2017-01-11] MEDS: SODIUM CHLORIDE 0.9% 1000ML 1,000 ML IV SCH (13:04)
[2017-01-11] MEDS ORDERED: HYDROCODONE/ACETAMOPHEN 5/325MG TAB PO ONE (13:30)
[2017-01-11 13:56] VITALS: BP 115/73; PULSE 67; TEMP 36.8; O2SAT 96
--- NOTE | 2017-01-11 16:33 | DISCHARGE SUMMARY ---
PRIMARY DISCHARGE DIAGNOSIS: Large ventral hernia. PROCEDURE PERFORMED: Open ventral hernia repair with mesh, component separation and extensive hydrolysis. HOSPITAL COURSE: The patient is a 51-year-old male inmate with a history of diverticulitis, brought in through same day and taken to the operating room for repair of large ventral hernia. The procedure was well tolerated. He was transferred to the surgical floor for overnight observation. On postoperative day #1, he was able to tolerate a diet, pain was well controlled. The MAGDALENA drainage was 45 mL. He was stable for discharged back to the [facility] with the drain. DISCHARGE INSTRUCTIONS: Discharge to the [facility]. Follow up with Dr. Osman in 2 weeks. No strenuous exercise for 4 weeks. Empty the drain as needed. It is okay to shower with the drain and cover as possible. DISCHARGE MEDICATIONS: Would recommend Ultram 50 mg as needed for pain or Tylenol No.3 1-2 tablets every 4 hours as needed and Bactrim-DS 1 tablet p.o. b.i.d. x7 days. May continue MiraLax powder packet as needed for constipation.
== END 2017-01-11 14:12 | DRG 337 ==
LOC: ENRESERVDT → ENRESERVTM → ENRESERV → C.ACU 09:40 → C.MSW 13:19
PROVIDERS: ADMIT Surgery; ATTEND Surgery
PROC: 0KNK0ZZ Release Right Abdomen Muscle, Open Approach (ICD-10-PCS; principal; 2017-01-10 11:00)
PROC: 0KNL0ZZ Release Left Abdomen Muscle, Open Approach (ICD-10-PCS; principal; 2017-01-10 11:00)
PROC: 0DNE0ZZ Release Large Intestine, Open Approach (ICD-10-PCS; principal; 2017-01-10 11:00)
PROC: 0WUF0JZ Supplement Abdominal Wall with Synthetic Substitute, Open Approach (ICD-10-PCS; principal; 2017-01-10 11:00)
PROC: 0DN80ZZ Release Small Intestine, Open Approach (ICD-10-PCS; principal; 2017-01-10 11:00)
DX: K43.9 Ventral hernia without obstruction or gangrene (principal); K66.0 Peritoneal adhesions (postprocedural) (postinfection); Z88.0 Allergy status to penicillin